=== PATIENT | female | born 1970 ===

== ENCOUNTER 2023-09-05 23:03 | Emergency (ER) | payer OTHER, SELFPAY ==
[2023-09-05 23:08] VITALS: BP 184/101; PULSE 100; RESP 20; TEMP 36.9; O2SAT 100
[2023-09-06 01:53] VITALS: BP 127/86; PULSE 77; RESP 14; O2SAT 100
[2023-09-06 03:00] LABS: Appearance Urine Clear (Clear); Bilirubin Urine Negative (Negative); Blood Urine Negative (Negative); Color Urine Yellow (Yellow); Glucose Urine UA Negative (Negative); Ketones Urine Negative (Negative); Leukocyte Esterase Ur Negative LEU/UL (Negative); Nitrate Urine Negative (Negative); Protein Urine Negative (Negative); Specific Grav Ur 1.008 (1.001-1.035); Urobilinogen Urine 0.2 mg/dL (<2.0); pH Urine 6.5 (5.0-9.0)
[2023-09-06 03:01] LABS: Alanine Aminotransferase 18 U/L (6-35); Albumin Level 4.6 g/dL (3.5-5.1); Alkaline Phosphatase 65 U/L (38-126); Anion Gap 10 mmol/L (4-12); Aspartate Amino Transferase 29 U/L (14-36); Bilirubin,Total 0.7 mg/dL (0.2-1.3); Blood Urea Nitrogen 16 mg/dL (7-17); Calcium 9.7 mg/dL (8.4-10.2); Carbon Dioxide 24 mmol/L (22-30); Chloride 105 mmol/L (98-107); Estimated CRCL calculation 115 ml/min; Estimated Glomerular Filt Rate > 60; Glucose 106 mg/dL (65-110); Potassium 3.7 mmol/L (3.4-5.0); Sodium 139 mmol/L (137-145)
[2023-09-06 03:11] LABS: Basophils Percent Auto 0.5 % (0.2-1.2); Eosinophils Absolute Auto 0.1 K/mm3 (0-0.3); Eosinophils Percent Auto 1.6 % (0-4.4); Hematocrit 41.8 % (37.0-47.0); Hemoglobin 13.7 g/dL (12.0-15.0); Immature Granulocyte Absolute 0.01 K/mm3 (0.00-0.031); Immature Granulocyte Percent A 0.2 % (0-0.5); Lymphocytes Absolute Auto 2.15 K/mm3 (0.9-3.2); Mean Corpuscular HGB Conc 32.8 g/dl (32-36); Mean Corpuscular Hemoglobin 28.4 pg (26-34); Mean Corpuscular Volume 86.7 fl (80-100); Mean Platelet Volume 9.3 fl (7.4-10.4); Monocytes Absolute Auto 0.5 K/mm3 (0.1-0.6); Monocytes Percent Auto 8.3 % (2.6-8.5); Neutrophils Absolute Auto 2.9 K/mm3 (1.3-6.7); Neutrophils Percent Auto 51.4 % (45.5-73.1); Platelet Count Result 340 k/mm3 (150-375); Red Blood Count 4.82 M/mm3 (4.2-5.4); Red Cell Distribution Width 13.2 % (11.5-14.5); White Blood Count 5.7 K/mm3 (4.5-10.0)
[2023-09-06 03:37] LABS: Add Urine Microscopic? NO
--- NOTE | 2023-09-06 03:59 | ED.GENADULT ---
HPI - General Adult General Chief complaint: Unspecified Stated complaint: high blood pressure Time Seen by Provider: 09/06/23 01:36 History of Present Illness HPI narrative: patient is a 53-year-old female who presents emergency department chief complaint of hypertension. Patient reports that live a headache for the last several days noticed her blood pressure is running high. Patient was 180/101 over she 1st arrived to the emergency department. The patient states that her blood pressures come down naturally on its own the patient denies chest pain denies shortness of breath denies focal neurological deficit. Related Data Allergies Allergy/AdvReac Type Severity Reaction Status Date / Time No Known Allergies Allergy Verified 11/18/13 10:15 Review of Systems Review of Systems: A 10 system review of systems was completed on the patient and is negative except for what is stated in the HPI. Nursing and ancillary documentation was reviewed. Exam Narrative: GENERAL: Well-appearing, well-nourished, and in no acute distress. HEAD: Normocephalic, atraumatic. EYES: PERRLA and EOMI. ENT: Nares clear, no rhinorrhea or epistaxis. Mucous membranes moist. NECK: Supple. CHEST: Clear to auscultation. No respiratory distress. HEART: Regular rate and rhythm. No murmur heard. Normal peripheral pulses. ABDOMEN: Soft, nontender, nondistended, normal active bowel sounds. EXTREMITIES: Normal range of motion. No edema. SKIN: Warm, dry, no rash. NEURO: No focal deficits. Alert and oriented x3. PSYCH: Normal mood and affect. Course Vital Signs Vital signs: Vital Signs Temperature 36.9 C 09/05/23 23:08 Pulse Rate 100 09/05/23 23:08 Respiratory Rate 20 09/05/23 23:08 Blood Pressure 184/101 H 09/05/23 23:08 Pulse Oximetry 100 09/05/23 23:08 Oxygen Delivery Room Air 09/05/23 23:08 Temperature 36.9 C 09/05/23 23:08 Pulse Rate 77 09/06/23 01:53 Respiratory Rate 14 09/06/23 01:53 Blood Pressure 127/86 09/06/23 01:53 Pulse Oximetry 100 09/06/23 01:53 Oxygen Delivery Room Air 09/05/23 23:08 Medical Decision Making MDM Narrative Medical decision making narrative: Differential diagnosis includes hypertensive crisis, electrolyte abnormality, ACS laboratory studies were obtained on the patient which showed a normal urinalysis electrolytes within normal limits CBC was within normal limits. Patient was observed in the emergency department and is currently asymptomatic. The patient discharged home to follow-up with her primary care provider Vital Signs Vital Signs: Vital Signs Temperature 36.9 C 09/05/23 23:08 Pulse Rate 100 09/05/23 23:08 Respiratory Rate 20 09/05/23 23:08 Blood Pressure 184/101 H 09/05/23 23:08 Pulse Oximetry 100 09/05/23 23:08 Oxygen Delivery Room Air 09/05/23 23:08 Temperature 36.9 C 09/05/23 23:08 Pulse Rate 77 09/06/23 01:53 Respiratory Rate 14 09/06/23 01:53 Blood Pressure 127/86 09/06/23 01:53 Pulse Oximetry 100 09/06/23 01:53 Oxygen Delivery Room Air 09/05/23 23:08 Lab Data 09/06/23 02:21 09/06/23 02:21 Labs: Lab Results 09/06/23 Range/Units 02:21 WBC 5.7 (4.5-10.0) K/mm3 RBC 4.82 (4.2-5.4) M/mm3 Hgb 13.7 (12.0-15.0) g/dL Hct 41.8 (37.0-47.0) % MCV 86.7 (80-100) fl MCH 28.4 (26-34) pg MCHC 32.8 (32-36) g/dl RDW 13.2 (11.5-14.5) % Plt Count 340 (150-375) k/mm3 MPV 9.3 (7.4-10.4) fl Immature Gran % (Auto) 0.2 (0-0.5) % Neut % (Auto) 51.4 (45.5-73.1) % Lymph % (Auto) 38.0 (18.3-44.2) % [place] % (Auto) 8.3 (2.6-8.5) % Eos % (Auto) 1.6 (0-4.4) % Baso % (Auto) 0.5 (0.2-1.2) % Lymph # (Auto) 2.15 (0.9-3.2) K/mm3 [place] # (Auto) 0.5 (0.1-0.6) K/mm3 Eos # (Auto) 0.1 (0-0.3) K/mm3 Baso # (Auto) 0.0 (0.0-0.1) K/mm3 Abs Immat Gran (auto) 0.01 (0.00-0.031) K/mm3 Absolute Neuts (auto) 2.9 (1.3-6.7) K/mm3
== END 2023-09-06 04:12 | disposition home or self-care (01) ==
PROVIDERS: Emergency Provider Emergency Medicine; PCP Internal Medicine
DX: I10 Essential (primary) hypertension (principal)
CPT/HCPCS: 36415; 80053; 81003; 81025; 85025; 99283